=== PATIENT | female | born 1950 | race Caucasian/White ===

== ENCOUNTER 2018-06-05 13:56 | Emergency (ER) | payer OTHER, MEDICARE ==
[2018-06-05] MEDS ORDERED: ACETAMINOPHEN 325 MG TABLET PO ONE (16:22)
[2018-06-05] MEDS ORDERED: CYCLOBENZAPRINE HCL 10 MG TABLET PO ONE (16:22)
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
[2018-06-05 17:55] VITALS: BP 108/69
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
== END 2018-06-05 18:06 | disposition home or self-care (01) ==
LOC: ER 13:56
DX: S29.012A Strain of muscle and tendon of back wall of thorax, initial encounter (principal); M54.2 Cervicalgia; M25.511 Pain in right shoulder; V89.2XXA Person injured in unspecified motor-vehicle accident, traffic, initial encounter; E78.00 Pure hypercholesterolemia, unspecified; I10 Essential (primary) hypertension; Z90.49 Acquired absence of other specified parts of digestive tract
CPT/HCPCS: 99284